=== PATIENT | male | born 1995 | race African-American/Black ===

== ENCOUNTER 2024-11-30 19:12 | Emergency (ER) | payer SELFPAY ==
[~2024-11-30] VITALS: Ht 182.9 cm; Wt 91.0 kg
[2024-11-30 19:22] VITALS: O2SAT 100
[2024-11-30] MEDS: IBUPROFEN 600MG TABLET PO ONE (21:25)
[2024-11-30 21:38] LABS: BASOPHILS % 0.8 % (0.0-2.0); EOSINOPHILS % 0.9 % (0.0-5.0); HEMATOCRIT. 42.6 % (42.0-52.0); HEMOGLOBIN. 14.5 g/dL (14.0-18.0); LYMPHOCYTES % 36.6 % (20.0-50.0); MEAN PLATELET VOLUME 9.6 fl (7.4-10.4); MONOCYTES % 11.7 % (2.0-8.0); NEUTROPHILS % 50.0 % (40.0-76.0); PLATELET 196 x1000/uL (130-400); RED BLOOD CELL COUNT 4.62 mill/uL (4.7-6.1); RED CELL DISTRIBUTION WIDTH 13.6 % (11.6-14.6)
[2024-11-30 21:50] LABS: CREATININE 1.1 mg/dL (0.6-1.3); TROPONIN I HIGH SENSITIVITY 4 ng/L (3.0-53); UREA NITROGEN BLOOD 10 mg/dL (9-23)
[2024-11-30] MEDS ORDERED: IBUP-2028 MT (21:58)
[2024-11-30 22:16] VITALS: BP 127/87; PULSE 61; RESP 18; TEMP 36.8; O2SAT 100
== END 2024-11-30 22:25 | disposition home or self-care (01) ==
LOC: ER 19:54
DX: M54.6 Pain in thoracic spine (principal); F17.210 Nicotine dependence, cigarettes, uncomplicated; R06.02 Shortness of breath
CPT/HCPCS: 36415; 71045; 80048; 84484; 85025; 85379; 93005; 99285